=== PATIENT | female | born 1965 | race Caucasian/White ===

== ENCOUNTER 2017-04-12 06:53 | Emergency (ER) | payer MEDICAID ==
[2017-04-12 07:02] VITALS: BP 118/97
--- NOTE | 2017-04-12 07:38 | ER Document Report ---
ED GI/ - General Mode of Arrival: Ambulatory Information source: Patient TRAVEL OUTSIDE OF THE [place] IN LAST 30 DAYS: No - HPI Patient complains to provider of: Abdominal pain, Dysuria, Flank pain Quality of pain: Throbbing Associated symptoms: Other - see hpi - General Chief Complaint: Urinary Problem Stated Complaint: URINARY PROBLEMS Time Seen by Provider: 04/12/17 07:21 Notes: Patient is a 51 year old female who presents to the ED with complaints of bilateral throbbing "kidney" pain and she thinks she has a UTI for the past week. Patient was given Pyridium with no relief. Patient states she has had burning bladder pain and dysuria. She states she has to strain in order to urinate. Patient is asking for Cipro. ([place]) - Related Data Allergies/Adverse Reactions: codeine [Codeine] Allergy (Severe, Verified 05/06/16 09:10) duloxetine HCl [From Cymbalta] Allergy (Severe, Verified 05/06/16 09:10) ketorolac tromethamine [From Toradol] Allergy (Severe, Verified 05/06/16 09:10) nalbuphine HCl [From Nubain] Allergy (Severe, Verified 05/06/16 09:10) naloxone HCl [From Narcan] Allergy (Verified 05/06/16 09:10) quetiapine fumarate [From Seroquel] Allergy (Verified 05/06/16 09:10) morphine [Morphine] Adverse Reaction (Intermediate, Verified 05/06/16 09:10) swelling at IV/IM site Past Medical History - General Information source: Patient - Social History Smoking Status: Former Smoker Chew tobacco use (# tins/day): No Frequency of alcohol use: None Drug Abuse: None Family History: Reviewed & Not Pertinent Patient has suicidal ideation: No Patient has homicidal ideation: No - Past Medical History Cardiac Medical History: Reports: Hx Hypertension Renal/ Medical History: Reports: Hx Kidney Stones. Denies: Hx Peritoneal Dialysis GI Medical History: Reports: Hx Irritable Bowel Psychiatric Medical History: Reports: Hx Depression Traumatic Medical History: Reports: Hx Fractures - Patella Past Surgical History: Reports: Hx Section, Hx Hysterectomy, Hx Oral Surgery, Hx Orthopedic Surgery, Hx Tubal Ligation - Immunizations Immunizations up to date: Yes Hx Diphtheria, Pertussis, Tetanus Vaccination: Yes Review of Systems - Review of Systems Constitutional: No symptoms reported EENT: No symptoms reported Cardiovascular: No symptoms reported Respiratory: No symptoms reported Gastrointestinal: See HPI, Abdominal pain Genitourinary: See HPI, Burning, Dysuria, Flank pain Female Genitourinary: No symptoms reported Musculoskeletal: No symptoms reported Skin: No symptoms reported Hematologic/Lymphatic: No symptoms reported Neurological/Psychological: No symptoms reported Physical Exam - General General appearance: Appears well, Alert In distress: None - HEENT Head: Normocephalic, Atraumatic Eyes: Normal Extraocular movements intact: Yes Pupils: PERRL - Respiratory Respiratory status: No respiratory distress Breath sounds: Normal - Cardiovascular Rhythm: Regular Heart sounds: Normal auscultation Murmur: No - Abdominal Inspection: Normal Distension: No distension Tenderness: Tender - superpubic - Back Back: Normal - Extremities General upper extremity: Normal inspection, Normal strength General lower extremity: Normal inspection, Normal strength - Neurological Neuro grossly intact: Yes - Psychological Associated symptoms: Normal affect, Normal mood - Skin Skin Temperature: Warm Skin Moisture: Dry Skin Color: Normal - Vital signs Vitals: Temp Pulse Resp BP Pulse Ox 98.1 F 111 H 16 118/97 H 100 04/12/17 06:57 04/12/17 06:57 04/12/17 06:57 04/12/17 06:57 04/12/17 06:57 - Vital Signs Vital signs: Temp Pulse Resp BP Pulse Ox 98.1 F 111 H 16 118/97 H 100 04/12/17 06:57 04/12/17 06:57 04/12/17 06:57 04/12/17 06:57 04/12/17 06:57 - Laboratory Laboratory results interpreted by me: 04/12/17 07:23 Urine Blood SMALL H Urine Nitrite POSITIVE H Urine Urobilinogen 4.0 H Ur Leukocyte Esterase TRACE H Discharge - Discharge Clinical Impression: Urinary tract infection Qualifiers: Urinary tract infection type: acute cystitis Hematuria presence: with hematuria Qualified Code(s): N30.01 - Acute cystitis with hematuria Condition: Stable Disposition: HOME, SELF-CARE Additional Instructions: Urinary Tract Infection Your evaluation indicates that you have a urinary tract infection. This is due to germs growing in the bladder. This is a common problem. This infection usually responds quickly to antibiotics. Your antibiotic should be taken exactly as prescribed. Drink plenty of fluids -- three to four quarts a day. Occasionally, a bladder anesthetic will be prescribed to help stop the feeling of urgency until the antibiotic has a chance to clear the infection. This may cause your urine to be dark orange. Certain urine infections require a culture. If the doctor obtained a culture, the results will be back in two days. You should call to see if a change in treatment is needed. A repeat urinalysis after you finish treatment is often recommended. The physician will let you know if further testing is required. Call the doctor if you develop fever, chills, flank pain, inability to urinate, or blood in the urine. Prescriptions: Ciprofloxacin HCl [Cipro 250 mg Tablet] 1 tab PO BID #10 tab Scribe Attestation: 04/12/17 08:08 I personally performed the services described in the documentation, reviewed and edited the documentation which was dictated to the scribe in my presence, and it accurately records my words and actions. (SCOTT KAUR) Scribe Documentation - Scribe Written by Kishan:: kishan Laureano, 04/12/17, 0738 acting as scribe for :: Hyacinth
[2017-04-12 07:53] LABS: APPEARANCE,URINE CLEAR; BILIRUBIN,URINE NEGATIVE (NEGATIVE); GLUCOSE, URINE NEGATIVE (NEGATIVE); KETONES,URINE NEGATIVE (NEGATIVE); LEUKOCYTE ESTERASE,URINE TRACE (NEGATIVE); NITRITE,URINE POSITIVE (NEGATIVE); PROTEIN,URINE NEGATIVE (NEGATIVE); URINE SPECIFIC GRAVITY 1.024
[2017-04-12] MEDS ORDERED: CIPROFLOXACIN HCL 500 MG TABLET PO ONE (08:09)
== END 2017-04-12 08:18 | disposition home or self-care (01) ==
LOC: ER 06:53
DX: N30.01 Acute cystitis with hematuria (principal); R39.198 Other difficulties with micturition; Z79.899 Other long term (current) drug therapy; R30.0 Dysuria; R39.89 Other symptoms and signs involving the genitourinary system; Z87.891 Personal history of nicotine dependence
CPT/HCPCS: 99283; 87086; 81001; J3490

== ENCOUNTER 2017-04-18 13:48 | Emergency (ER) | payer MEDICAID ==
[2017-04-18 13:53] VITALS: BP 143/87
--- NOTE | 2017-04-18 14:26 | ER Document Report ---
HPI - HPI Patient complains to provider of: suprapubic burning Onset: Other - 2 weeks Onset/Duration: Sudden Pain Level: 2 Context: 51 yo htn non smoker female had sudden onset of suprapubic burning 2 weeks ago , constant, getting the urine out makes it better, feels like burning in bladder and urethra and straining and lean forward to urinate. Now has urerthra burning since yesterday. Taking pyridum 200mg every 2 hours. UA and urine culture negative from ER visit last Thursday. Has taken Cipro 500mg and Macrobid without relief during this 2 weeks. no fever. nausea without vomiting. no diarrhea. no flank pain. hx PUD, hiatel hernia, no hx crohns, colitis, endometriosis. HX prachi, hyst, stones (urologist -dr. beth) right oophorectomy. PCP: Dr. Thakur ([facility]). Scared she has to suffer another night, anxious. Abstinant 5 years ago. - REPRODUCTIVE Reproductive: DENIES: : - DERM Skin Color: Normal Past Medical History - General Information source: Patient - Social History Smoking Status: Never Smoker Frequency of alcohol use: None Drug Abuse: None Occupation: [employer]-poly cystic liver disease Lives with: Friend - roomate Family History: Reviewed & Not Pertinent - Past Medical History Cardiac Medical History: Reports: Hx Hypertension Renal/ Medical History: Reports: Hx Kidney Stones. Denies: Hx Peritoneal Dialysis GI Medical History: Reports: Hx Irritable Bowel, Other - polycystic liver disease Psychiatric Medical History: Reports: Hx Anxiety - takes ativan, Hx Depression Traumatic Medical History: Reports: Hx Fractures - Patella Past Surgical History: Reports: Hx Cholecystectomy, Hx Hysterectomy, Hx Oral Surgery, Hx Orthopedic Surgery, Hx Tubal Ligation Other: right ovary removed with hysterectomy - Immunizations Immunizations up to date: Yes Hx Diphtheria, Pertussis, Tetanus Vaccination: Yes Vertical Provider Document - CONSTITUTIONAL Agree With Documented VS: Yes Exam Limitations: No Limitations General Appearance: No Apparent Distress Notes: very anxious - INFECTION CONTROL TRAVEL OUTSIDE OF THE [place] IN LAST 30 DAYS: No - HEENT HEENT: Normal ENT Exam, Normocephalic - NECK Neck: Supple - RESPIRATORY Respiratory: Breath Sounds Normal, No Respiratory Distress O2 Sat by Pulse Oximetry: 93 - CARDIOVASCULAR Cardiovascular: Regular Rate, Regular Rhythm - GI/ABDOMEN Gastrointestinal: Abdomen Soft, Abdomen Non-Tender - REPRODUCTIVE Notes: vulvar skin erythematous, thinning, urethra OK, vagina with some erythema. Course - Re-evaluation Re-evalutation: 04/18/17 16:22 The topical 2% lidocaine jelly is helping with the sensation of burning somewhat but she still feels like she is not emptying your bladder and that she has to urinate again. I will have the nurses do a bladder scan. 04/18/17 16:56 Bladder scan showed 0 mL of urine in the bladder the patient is convinced that this is a urinary tract infection I explained we will try the cephalexin and with the urine culture pending I also told her she needs to see WELLNESS INSTRUCTOR because I think that this is a thinning of the vulvar and vaginal and urethral skin that the topical estrogen may help. Estrogen needs to be prescribed by WELLNESS IN[employer]. - Vital Signs Vital signs: Temp Pulse Resp BP Pulse Ox 97.9 F 108 H 20 143/87 H 93 04/18/17 13:52 04/18/17 13:52 04/18/17 13:52 04/18/17 13:52 04/18/17 13:52 - Laboratory Result Diagrams: 04/18/17 15:20 04/18/17 15:20 Discharge - Discharge Clinical Impression: Vulvar burning, Urinary urgency Vaginitis Qualifiers: Chronicity: acute Qualified Code(s): N76.0 - Acute vaginitis Vulvar inflammation Qualifiers: Chronicity: acute Qualified Code(s): N76.2 - Acute vulvitis Condition: Good Disposition: HOME, SELF-CARE Instructions: Cephalexin ([facility]), Topical Lidocaine ([facility]), Vaginitis ([facility]) Additional Instructions: Please call your doctor on Thursday for a WELL[facility] IN[employer] referral for possible estrogen cream application Urine culture is pending Try the cephalexin and see if that helps You can continue the Pyridium 200 mg only 3 times a day Topical lidocaine jelly to help known the vulvar tissues Please complete the patient satisfaction survey if you get one, and return it.. If you do not receive a survey, then you can go to the [facility] website, [email or web address] and place your comments about your very good care. Thank you very much. It was a pleasure being your medical provider today. Prescriptions: Cephalexin Monohydrate [Keflex 500 mg Capsule] 500 mg PO QID #28 capsule Lidocaine [Lmx 4] 1 applic TP BID #30 cream..g.
[2017-04-18] MEDS ORDERED: TRAMADOL HCL 50 MG TABLET PO ONE (14:50)
[2017-04-18] MEDS ORDERED: ACETAMINOPHEN 325 MG TABLET PO ONE (14:50)
[2017-04-18 14:55] LABS: APPEARANCE,URINE CLEAR; BILIRUBIN,URINE NEGATIVE (NEGATIVE); GLUCOSE, URINE NEGATIVE (NEGATIVE); KETONES,URINE NEGATIVE (NEGATIVE); LEUKOCYTE ESTERASE,URINE NEGATIVE (NEGATIVE); NITRITE,URINE POSITIVE (NEGATIVE); PROTEIN,URINE 30 mg/dL (NEGATIVE); URINE SPECIFIC GRAVITY 1.025
[2017-04-18 15:37] LABS: ABSOLUTE BASOPHILS # (AUTO) 0.2 10^3/uL (0.0-0.2); ABSOLUTE LYMPHOCYTES (AUTO) 2.4 10^3/uL (0.5-4.7); ABSOLUTE MONOCYTES (AUTO) 0.8 10^3/uL (0.1-1.4); ABSOLUTE NEUT (AUTO) 6.5 10^3/uL (1.7-8.2); BASOPHILS % (AUTO) 1.8 % (0-2); EOSINOPHILS % (AUTO) 0.3 % (0-6); HEMATOCRIT 42.5 % (36.0-47.0); HEMOGLOBIN 14.6 g/dL (12.0-15.5); HGB HCT DIFFERENCE 1.3; LYMPHOCYTES % (AUTO) 24.3 % (13-45); MEAN CORPUSCULAR HEMOGLOBIN 30.6 pg (27.0-33.4); MEAN CORPUSCULAR HGB CONC 34.3 g/dL (32.0-36.0); MEAN CORPUSCULAR VOLUME 89 fl (80-97); MONOCYTES % (AUTO) 8.5 % (3-13); RED BLOOD COUNT 4.75 10^6/uL (3.72-5.28); RED CELL DISTRIBUTION WIDTH 12.4 % (11.5-14.0); SEGMENTED NEUTROPHILS % (AUTO) 65.1 % (42-78)
[2017-04-18] MEDS ORDERED: LIDOCAINE 2% JELLY 30 ML TUBE TOP ONE (15:44)
[2017-04-18 15:56] LABS: ALANINE AMINOTRANSFERASE 42 U/L (9-52); ALBUMIN 4.4 g/dL (3.5-5.0); ALKALINE PHOSPHATASE 93 U/L (38-126); ANION GAP 12 (5-19); ASPARTATE AMINO TRANSFERASE 23 U/L (14-36); BILIRUBIN,TOTAL 0.8 mg/dL (0.2-1.3); BLOOD UREA NITROGEN 19 mg/dL (7-20); CALCIUM 9.3 mg/dL (8.4-10.2); CARBON DIOXIDE 26 mmol/L (22-30); CHLORIDE 103 mmol/L (98-107); CREATININE RESULT 0.83 mg/dL (0.52-1.25); GLUCOSE 115 mg/dL (75-110); POTASSIUM 4.1 mmol/L (3.6-5.0); SODIUM 141.2 mmol/L (137-145); TOTAL PROTEIN 7.4 g/dL (6.3-8.2)
[2017-04-18] MEDS ORDERED: LIDOCAINE 2% JELLY 5 ML TUBE MM ONE (16:30)
[2017-04-18 17:21] LABS: CHLAM PCR NOT DETECTED (NOT DETECT)
== END 2017-04-18 17:16 | disposition home or self-care (01) ==
LOC: ER 13:48
DX: N76.0 Acute vaginitis (principal); N76.2 Acute vulvitis; R39.15 Urgency of urination; R10.9 Unspecified abdominal pain; F41.9 Anxiety disorder, unspecified; Z79.899 Other long term (current) drug therapy
CPT/HCPCS: 99283; 36415; 87086; 87210; 85025; 80053; 81001; 87491; 87591; J3490 ×2

== ENCOUNTER 2017-10-28 08:34 | Emergency (ER) | payer MEDICAID ==
[2017-10-28] MEDS ORDERED: ONDANSETRON HCL INJ/PF 4 MG/2 ML SDV IV ONE (08:59)
[2017-10-28] MEDS ORDERED: LIDOCAINE 2% VISCOUS SOLN 20 ML UDCUP PO ONE (08:59)
[2017-10-28] MEDS ORDERED: NORMAL SALINE 1000 ML 1,000 ML IV ONE (08:59)
[2017-10-28] MEDS ORDERED: HYDROMORPHONE HCL INJ/PF 2 MG/ML AMPULE IV ONE ×3 (08:59→13:47)
[2017-10-28] MEDS ORDERED: METOCLOPRAMIDE HCL ORAL SOLN 10 MG/10 ML UDCUP PO ONE (08:59)
[2017-10-28] MEDS ORDERED: MAG HYDROX/AL HYDROX/SIMETH SUSP 30 ML UDCUP PO ONE (08:59)
--- NOTE | 2017-10-28 09:01 | ER Document Report ---
ED General - General Chief Complaint: Abdominal Pain Stated Complaint: ABDOMINAL PAIN Time Seen by Provider: 10/28/17 08:59 Mode of Arrival: Ambulatory Information source: Patient TRAVEL OUTSIDE OF THE [place] IN LAST 30 DAYS: No - HPI Notes: 52-year-old female with a past medical history of polycystic [place] presents to the ER for complaints of right upper quadrant abdominal pain that started 6 days ago. Patient reports nausea, denies vomiting. Patient reports her primary care provider to perform a CT scan a month ago to check a baseline for polycystic cysts. Patient states a week ago her cyst did rupture, patient was sent home with medications. Her primary care provider, Dr. Lisa Posada, has been managing her, she has not followed up with a corrugated box machine operator in this area. Pain is 9 out of 10, sharp and throbbing. Worse with time, nothing makes better, nothing makes worse. Has not tried any [id number]-lwk-nrgdhay medications. Denies fevers, chills, chest pain,palpitations, shortness of breath, dyspnea, vomiting, diarrhea, hematuria,blurred vision, double vision, loss of vision, speech changes, LH, dizziness, syncope, headaches, wheezing, ST , URI, neck pain, weakness, bowel or bladder dysfunction, saddle anesthesia, numbness or tingling in bilateral upper or lower extremities equally, muscle paralysis, weakness in bilateral upper or lower extremities equally or rash. Denies IV drug use. - Related Data Allergies/Adverse Reactions: codeine [Codeine] Allergy (Severe, Verified 10/28/17 08:36) duloxetine HCl [From Cymbalta] Allergy (Severe, Verified 10/28/17 08:36) ketorolac tromethamine [From Toradol] Allergy (Severe, Verified 10/28/17 08:36) nalbuphine HCl [From Nubain] Allergy (Severe, Verified 10/28/17 08:36) naloxone HCl [From Narcan] Allergy (Verified 10/28/17 08:36) quetiapine fumarate [From Seroquel] Allergy (Verified 10/28/17 08:36) morphine [Morphine] Adverse Reaction (Intermediate, Verified 10/28/17 08:36) swelling at IV/IM site Past Medical History - General Information source: Patient - Social History Smoking Status: Unknown if Ever Smoked Family History: Reviewed & Not Pertinent - Past Medical History Cardiac Medical History: Reports: Hx Hypertension Renal/ Medical History: Reports: Hx Kidney Stones. Denies: Hx Peritoneal Dialysis GI Medical History: Reports: Hx Irritable Bowel Psychiatric Medical History: Reports: Hx Anxiety - takes ativan, Hx Depression Traumatic Medical History: Reports: Hx Fractures - Patella Past Surgical History: Reports: Hx Section, Hx Cholecystectomy, Hx Hysterectomy, Hx Oral Surgery, Hx Orthopedic Surgery, Hx Tubal Ligation - Immunizations Immunizations up to date: Yes Hx Diphtheria, Pertussis, Tetanus Vaccination: Yes Review of Systems - Review of Systems Constitutional: No symptoms reported EENT: No symptoms reported Cardiovascular: No symptoms reported Respiratory: No symptoms reported Gastrointestinal: See HPI Genitourinary: No symptoms reported Female Genitourinary: No symptoms reported Musculoskeletal: No symptoms reported Skin: No symptoms reported Hematologic/Lymphatic: No symptoms reported Neurological/Psychological: No symptoms reported Physical Exam - Vital signs Vitals: Temp Pulse Resp BP Pulse Ox 98.1 F 107 H 20 126/76 H 96 10/28/17 08:40 10/28/17 08:40 10/28/17 08:40 10/28/17 08:40 10/28/17 08:40 - Notes Notes: PHYSICAL EXAMINATION: GENERAL: Well-appearing, well-nourished and in no acute distress. HEAD: Atraumatic, normocephalic. EYES: Pupils equal round and reactive to light, extraocular movements intact, conjunctiva are normal. ENT: Nares patent, oropharynx clear without exudates. Moist mucous membranes. NECK: Normal range of motion, supple without lymphadenopathy LUNGS: Breath sounds clear to auscultation bilaterally and equal. No wheezes rales or rhonchi. HEART: Regular rate and rhythm without murmurs ABDOMEN: Soft, nondistended abdomen. Right upper quadrant tenderness on palpation with rebound. no guarding, no rebound. No masses appreciated. No CVA tenderness appreciated bilaterally bilaterally Female : deferred Musculoskeletal: Normal range of motion, no pitting or edema. No cyanosis. NEUROLOGICAL: Cranial nerves grossly intact. Normal speech, normal gait. Normal sensory, motor exams PSYCH: Normal mood, normal affect. SKIN: Warm, Dry, normal turgor, no rashes or lesions noted. Course - Re-evaluation Re-evalutation: 10/28/17 13:25 Afebrile 52-year-old female with a past medical history of polycystic hepatic cysts because she is concerned that she ruptured. Patient states she has had these cysts for over 2 decades. States she ruptured a cyst a week ago, was seen in an emergency room and sent home with. CBC negative for leukocytosis or anemia. CMP negative for hepatic or renal dysfunction, no electrolyte disturbances noted. Reaffirms that she is not experiencing any shortness of breath or chest pain. Patient states her pain remains at 5 out of 10, sharp. Patient finds relief with Dilaudid. urinalysis negative for UTI, noted hematuria. Ultrasound of right upper quadrant shows multiple cysts on her liver. Patient is diffusely tender in right upper and right lower quadrant with severe pain, reevaluation patient states that her pain is been getting better. This provider went into speak with patient's, she was resting in bed, heart rate 90 and appeared to be sleeping. CT abdomen pelvis with IV and oral contrast shows that she has multiple simple cysts to liver. No free fluid or ascites noted. Lesions vitals remained stable, afebrile and she is in no distress. Discussed having patient follow up with her primary care provider tomorrow, following up with a corrugated box machine operator for hepatic cysts since she is not seen by [facility]. I have reevaluated this patient multiple times and no significant life threatening changes, no signs of toxicity, sepsis or peritonitis are noted. The patient and I have discussed the diagnosis and risks , and we agree with discharging home and close follow-up. We also discussed returning to the Emergency Department immediately if new or worsening symptoms occur with the understanding that symptoms and presentations can change. At this time will discharge with return precautions and follow-up recommendations. Verbal discharge instructions given a the bedside and opportunity for questions given. We have discussed the symptoms which are most concerning (e.g. , saddle anesthesia, urinary or bowel incontinence or retention, changing or worsening pain) that necessitate immediate return. Medication warnings reviewed. Patient is in agreement with this plan and has verbalized understanding of return precautions and the need for primary care follow-up in the next 24-72 hours. Patient verbalized understanding of plan of care and agree with plan of care. - Vital Signs Vital signs: Temp Pulse Resp BP Pulse Ox 98.1 F 107 H 14 106/90 H 93 10/28/17 08:40 10/28/17 08:40 10/28/17 16:01 10/28/17 16:01 10/28/17 14:01 - Laboratory Result Diagrams: 10/28/17 11:20 Laboratory results interpreted by me: 10/28/17 10/28/17 09:45 11:20 Glucose 111 H Urine Blood MODERATE H Urine Urobilinogen 2.0 H - EKG Interpretation by Me EKG shows normal: Sinus rhythm Rate: Normal Rhythm: NSR - STEMI. [address] segment changes since previous EKG. Discharge - Discharge Clinical Impression: Polycystic liver disease, Right upper quadrant pain Hematuria Qualifiers: Hematuria type: unspecified type Qualified Code(s): R31.9 - Hematuria, unspecified Condition: Good Disposition: HOME, SELF-CARE Instructions: Abdominal Pain ([facility]) Additional Instructions: Abdominal Pain There are many causes of abdominal pain. Pain can mean a serious problem requiring surgery (such as appendicitis). It can also be an innocent problem that goes away on its own (such as a viral infection). Often, time must pass to determine the cause of pain. The physician does not feel that hospitalization is necessary, at present. Things may change within the next 24 hours. Call the doctor or come back for re- examination if any problems occur, such as: (1) Pain that becomes more severe, steady, or becomes concentrated in one specific area. Also, pain that is more severe with movement or coughing. (2) Vomiting that persists or becomes more frequent. (3) Blood in the vomitus, urine, or bowel movements. Blood in the stool may have a tarry or black appearance. (4) Shaking chills or fever greater than 100 degrees F. (5) The abdomen becomes more distended or swollen. (6) Bowel movements cease. (7) Failure to improve as expected. Follow-up with corrugated box machine operator within [address] scan abdomen dated for any acute findings did see multiple cysts on the liver. Urinalysis does show blood in urine, do follow-up with your primary care provider regarding this. Take Zofran as needed for nausea. Work note given. Increase oral hydration return to the emergency room if symptoms become progressively worse. My discharge. Return immediately for any new or worsening symptoms. Follow up with primary care provider, call tomorrow to make followup appointment. Prescriptions: Ondansetron [Zofran Odt 4 mg Tablet] 1 - 2 tab PO Q4H PRN #15 tab.rapdis PRN Reason: For Nausea/Vomiting Forms: Return to Work Referrals: TYLER MORALES MD [ACTIVE STAFF] - Follow up in 3-5 days ARTURO NEGRETE MD [COMMUNITY BASED STAFF] - Follow up in 3-5 days
--- NOTE | 2017-10-28 10:02 | RADIOLOGY REPORT (SQ) ---
EXAM DESCRIPTION: U/S ABDOMEN LIMITED W/O DOP COMPLETED DATE/TIME: 10/28/2017 9:44 am REASON FOR STUDY: RUQ pain, GB removed COMPARISON: CT abdomen pelvis 05/28/2014, 06/13/2015, 06/25/2016 MRI abdomen 02/19/2014 Abdominal ultrasound 02/18/2014 TECHNIQUE: Dynamic and static grayscale images acquired of the abdomen and recorded on PACS. Additio nal selected color Doppler and spectral images recorded. LIMITATIONS: None. FINDINGS: PANCREAS: Midline pancreas unremarkable LIVER: Normal size. No biliary ductal dilatation. Too numerous to count hepatic cysts, unchanged fr om prior studies. LIVER VASCULATURE: Normal directional flow of the main portal vein and hepatic veins. GALLBLADDER: Surgically absent ULTRASOUND-DETECTED JOE'S SIGN: Not applicable INTRAHEPATIC DUCTS AND COMMON DUCT: CBD and intrahepatic ducts normal caliber. No filling defects. INFERIOR VENA CAVA: Normal flow. AORTA: No aneurysm. RIGHT KIDNEY: Normal size. Normal echogenicity. No solid or suspicious masses. No hydronephrosis. No calcifications. PERITONEAL AND RIGHT PLEURAL SPACE: No ascites or effusions. OTHER: No other significant findings. IMPRESSION: Too numerous to count liver parenchymal cysts, similar compared to previous exams. Post cholecystectomy. No biliary ductal dilatation. TECHNICAL DOCUMENTATION: JOB ID: [id number] [employer]- All Rights Reserved Reading location - IP/workstation name: [email or web address]
[2017-10-28 10:11] LABS: APPEARANCE,URINE CLEAR; BILIRUBIN,URINE NEGATIVE (NEGATIVE); COLOR,URINE YELLOW; GLUCOSE, URINE NEGATIVE (NEGATIVE); KETONES,URINE NEGATIVE (NEGATIVE); LEUKOCYTE ESTERASE,URINE NEGATIVE (NEGATIVE); NITRITE,URINE NEGATIVE (NEGATIVE); PROTEIN,URINE NEGATIVE (NEGATIVE); URINE SPECIFIC GRAVITY 1.018
[2017-10-28 10:21] LABS: CREATINE KINASE MB < 0.22 ng/mL (<4.55); TROPONIN I < 0.012 ng/mL
[2017-10-28 12:00] LABS: ALANINE AMINOTRANSFERASE 31 U/L (9-52); ALBUMIN 3.6 g/dL (3.5-5.0); ALKALINE PHOSPHATASE 116 U/L (38-126); ANION GAP 13 (5-19); ASPARTATE AMINO TRANSFERASE 19 U/L (14-36); BILIRUBIN,DIRECT 0.2 mg/dL (0.0-0.4); BILIRUBIN,TOTAL 0.2 mg/dL (0.2-1.3); BLOOD UREA NITROGEN 17 mg/dL (7-20); CALCIUM 8.5 mg/dL (8.4-10.2); CARBON DIOXIDE 27 mmol/L (22-30); CHLORIDE 103 mmol/L (98-107); GLUCOSE 111 mg/dL (75-110); LIPASE 115.3 U/L (23-300); TOTAL PROTEIN 6.7 g/dL (6.3-8.2)
[2017-10-28 12:02] LABS: POTASSIUM 3.8 mmol/L (3.6-5.0)
--- NOTE | 2017-10-28 13:49 | RADIOLOGY REPORT (SQ) ---
EXAM DESCRIPTION: CT ABD/PELVIS WITH IV ORAL COMPLETED DATE/TIME: 10/28/2017 1:29 pm REASON FOR STUDY: RUQ pain, ? rupture,hx of polycystic liver COMPARISON: 06/13/2015 TECHNIQUE: CT scan of the abdomen and pelvis performed using helical scanning technique with dynamic intravenous contrast injection. No oral contrast. Images reviewed with lung, soft tissue, and bone windows. Reconstructed coronal and sagittal MPR images reviewed. Delayed images for evaluation of the urinary system also acquired. All images stored on PACS. All CT scanners at this facility use dose modulation, iterative reconstruction, and/or weight based d osing when appropriate to reduce radiation dose to as low as reasonably achievable (ALARA). [facility]: Dose Right [facility]: CareDose [facility]: Dose Right [facility]: Teradose 4D [facility]: AdGent Digital CONTRAST TYPE AND DOSE: contrast/concentration: Isovue 370.00 mg/ml; Total Contrast Delivered: 89.0 ml; Total Saline Delivered: 70.1 ml 89 mL Isovue 370 intravenously RENAL FUNCTION: Creatinine 0.8 RADIATION DOSE: CT Rad equipment meets quality standard of care and radiation dose reduction techniq ues were employed. CTDIvol: 13.7 - 17.2 mGy. DLP: 1689 mGy-cm.. LIMITATIONS: None. FINDINGS: LOWER CHEST: Linear atelectatic change/patchy infiltrate right lung base. LIVER: Diffuse cystic changes again seen throughout the liver, similar to prior study. Innumerable C yst of varying size up to 4.1 cm. No ascites around the liver. SPLEEN: Normal size. No focal lesions. PANCREAS: No masses. No significant calcifications. No adjacent inflammation or peripancreatic fluid collections. Pancreatic duct not dilated. GALLBLADDER: Surgical clips, post cholecystectomy ADRENAL GLANDS: No significant masses or asymmetry. RIGHT KIDNEY AND URETER: No solid masses. No significant calcifications. No hydronephrosis or hyd roureter. LEFT KIDNEY AND URETER: No solid masses. No significant calcifications. No hydronephrosis or hydr oureter. AORTA AND VESSELS: No AAA or aortic dissection. RETROPERITONEUM: No retroperitoneal adenopathy, hemorrhage or masses. BOWEL AND PERITONEAL CAVITY: No masses or inflammatory changes. No free fluid or peritoneal masses. APPENDIX: Normal. PELVIS: No pelvic mass, post hysterectomy ABDOMINAL WALL: No masses. No hernias. BONES: No significant or acute findings. OTHER: No other significant finding. IMPRESSION: Stable appearance. Innumerable cysts again seen throughout the liver. No ascites. Post cholecystectomy. TECHNICAL DOCUMENTATION: JOB ID: [id number] Quality ID # [id number]: Final reports with documentation of one or more dose reduction techniques (e.g., Au tomated exposure control, adjustment of the mA and/or kV according to patient size, use of iterative reconstruction technique) 2010 [employer] [facility]- All Rights Reserved Reading location - IP/workstation name: [email or web address]
[2017-10-28] MEDS ORDERED: HYDROCODONE/ACETAMINOPHEN 5-325 MG (6 TAB/ER DISP) PO PRN (15:42)
[2017-10-28 16:11] VITALS: BP 106/90
--- NOTE | 2017-10-28 23:47 | EKG REPORT ---
SEVERITY:- BORDERLINE ECG - SINUS RHYTHM BORDERLINE PROLONGED QT INTERVAL : Confirmed by: Regulo Sanders 28-Oct-2017 23:47:14
== END 2017-10-28 16:19 | disposition home or self-care (01) ==
LOC: ER 08:34
DX: Q44.6 Cystic disease of liver (principal); R31.9 Hematuria, unspecified; R10.11 Right upper quadrant pain; R10.31 Right lower quadrant pain; R11.0 Nausea; I10 Essential (primary) hypertension
CPT/HCPCS: 93005; 96376; 99285; 96361; 96374; 96375; 36415; 87086; 82553; 83690; 80076; 80048; 81001; 84484; 76705; 74177; 93010; J3490 ×3; J1170; J2405; J7030